=== PATIENT | female | born 1960 | race Caucasian/White ===

== ENCOUNTER → 2024-07-10 07:53 | Outpatient (REF) | payer OTHER, SELFPAY | LOC: HWWDC 07:53 | PROVIDERS: ATTENDING PHYSICIAN Obstetrics & Gynecology; FAMILY PHYSICIAN Nurse Practitioner Adult Health | DX: Z12.31 Encounter for screening mammogram for malignant neoplasm of breast (principal) | CPT/HCPCS: 77063; 77067 ==

== ENCOUNTER → 2025-08-07 10:22 | Outpatient (REF) | payer OTHER, SELFPAY | LOC: HWWDC 10:22 | PROVIDERS: ATTENDING PHYSICIAN Obstetrics & Gynecology; FAMILY PHYSICIAN Nurse Practitioner Adult Health | DX: Z12.31 Encounter for screening mammogram for malignant neoplasm of breast (principal) | CPT/HCPCS: 77063; 77067 ==